=== PATIENT | male | born 1955 | race African-American/Black ===

== ENCOUNTER 2025-09-09 14:22 | Outpatient (CLI) | payer MEDICARE, SELFPAY ==
--- NOTE | ~2025-09-09 | US_ITS ---
EXAMINATION: US venous doppler LE RT, 09/09/2025 14:24 PASTEURIZER HELPER HISTORY: R60.0 - Localized edema Comparison: None Technique: Simmons-scale and color Doppler images were attempted of the lower saphenofemoral junction, common femoral vein,superficial femoral vein, proximal deep femoral vein, proximal deep femoral vein, popliteal vein and posterior tibial veins. Findings: Deep Venous System:Normal flow, augmentation and compressibility. No echogenic thrombus identified. The contralateral saphenofemoral junction appears unremarkable. Superficial Venous SystemNo superficial thrombophlebitis. Soft tissues: Soft tissues there is a enlarged right inguinal lymph node 4.2 x 2.3 cm probably reactive, follow-up suggested to assess resolution Impression: Negative for DVT. Reviewed, dictated and finalized at location P. EURIZER HELPER Impression: Negative for DVT.
--- OUTSIDE RECORDS SUMMARY | 2025-09-09 15:10 | XMS_ITS | Clinical Summary ---
Author Organization [facility] Address [address] [facility], [address] [address] Phone Care Team Providers Care Dental Front Office Assistant Name Role Phone Aram Still MD Primary Care Provider [phone] Slava Montiel MD Unavailable [phone] Kev Arora MD Unavailable [phone] Larry Joseph MD Unavailable [phone] Allergies Active Allergy Reactions Criticality Noted Date Comments Penicillins Other (see Comments) Cold sweat [place] Extract Rash 10/08/2019 Medications Multiple Vitamins-Minerals (SALMA MULTIVITAMIN FOR MEN PO) Take by mouth daily. Active Naproxen Sodium (ALEVE PO) Take by mouth as needed. Active meloxicam (MOBIC) 7.5 MG Tablet Take 1 Tablet by mouth daily. 90 Tablet 5 Active metroNIDAZOLE (FLAGYL) 500 MG TabletIndications :Trichomoniasis Take 4 Tablets by mouth once for 1 dose. 4 Tablet 5 08/29/20 25 Active Problems Problem Noted Date Diagnosed Date Carpal tunnel syndrome, left 08/14/2025 Arthritis 09/22/2021 Diastolic dysfunction 02/15/2020 Aortic regurgitation 02/15/2020 Resolved Problems Problem Noted Date Diagnosed Date Resolved Date High blood pressure 02/07/2020 09/12/20 Arthritis of left knee 09/11/201909/12 Rotator cuff tear, right 11/14/2015 Encounters Date Type Department Care Team Description 08/29/2025 [facility] [address] [place] [address] Aram Still MD Follow-up 08/14/2025 11:15 AM DIRECTOR TREASURER - 08/14/2025 12:15 PM DIRECTOR TREASURER [facility] 1 [place] [address] Matteo Mooney MD LEFT CARPAL TUNNEL RELEASE 08/14/2025 11:05 AM DIRECTOR TREASURER Anesthesia [facility] [address] [place] [address] Vishnu Branch, TERRAZZO MECHANIC HELPER, SONAR SUBSYSTEM EQUIPMENT OPERATOR 08/14/2025 9:28 AM DIRECTOR TREASURER - 08/14/2025 1:44 PM DIRECTOR TREASURER Hospital [facility] Preop[facility]Pac[facility] 1 [place] [address] Matteo Mooney MD Carpal tunnel syndrome, left Discharge Disposition: Discharged to home or Selfcare 08/14/2025 Travel 08/06/2025 11:45 AM CDT - 08/06/2025 11:59 PM CDT Hospital [facility] 1 [place] [address] Matteo Mooney MD Discharge Disposition: Discharged to home or Selfcare 08/05/2025 Travel 08/05/2025 Transcribe Orders [facility] Preop/Pacu II 1 [place] [address] Matteo Mooney MD Pre-op testing (Primary Dx) 07/17/2025 11:00 AM CDT [facility] [address] [place] [address] Matteo Mooney MD Osteoarthritis of right elbow, unspecified osteoarthritis type; Osteoarthritis of right wrist, unspecified osteoarthritis type; Pain in both hands; Pain of both elbows Discharge Disposition: Discharged to home or Selfcare 07/17/2025 Travel 07/01/2025 Transcribe Orders [facility] Scheduling 1 [place] [address] Matteo Mooney MD Osteoarthritis of right elbow, unspecified osteoarthritis type (Primary Dx); Osteoarthritis of right wrist, unspecified osteoarthritis type; Pain in both hands; Pain of both elbows from Last 3 Months Immunizations Immunization Administration Dates Next Due Covid-19, Mrna, Lnp-s, Pf, 3 0 Mcg/0.3 Ml Dose ([employer]) 05/09/2021,04/18/2021 Hepatitis B Vaccine, Pediatric/adolescent 1997,04/29/1998,03/25/1998 PUR TDAP 7+ YRS IM 09/06/2016 Pneumococcal Vaccine - 13 Valent 09/11/2019 Pneumococcal Vaccine Adult - 23 Valent 0 TD VACCINE 10/10/2004 Zoster Vaccine, live 11/08/2014 Family History Medical History Relation Name Comments Diabetes Brother Hypertension Brother Stroke Brother Cancer Father lung Thyroid Disease Mother Relation Name Status Comments Brother Father Mother Alive Social History Tobacco Use Types Packs/Day Years Used Date Smoking Tobacco: Never Smokeless Tobacco: Never Tobacco Cessation:Counseling Given: No Alcohol Use Standard Drinks/Week Comments Yes 0 (1 standard drink = 0.6 oz pur e alcohol) occasional beer PHQ-2 Answer Date Recorded Total Score - Questions 1-9 0 04/2025 Sex and Gender Information Value Date Recorded Sex Assigned at Not on file Legal Sex Male 8:52 PM CDT Gender Identity Not on file Sexual Orientation Not on file Last Filed Vital Signs Vital Sign Reading Time Taken Comments Blood Pressure 128/76 08/14/2025 12:45 PM DIRECTOR TREASURER Pulse 60 08/14/2025 12:45 PM DIRECTOR TREASURER Temperature 36.4 C (97.5 F) 08/14/2025 12:45 PM DIRECTOR TREASURER Respiratory Rate 16 08/14/2025 12:45 PM DIRECTOR TREASURER Oxygen Saturation 100% 08/14/2025 12:45 PM DIRECTOR TREASURER Inhaled Oxygen Concentration - - Weight 84.1 kg (185 lb 4.8 oz) 08/14/2025 9:33 A M DIRECTOR TREASURER Height 180.3 cm (5' 11) 08/14/2025 9:33 AM DIRECTOR TREASURER Body Mass Index 25.84 08/14/2025 9:33 AM DIRECTOR TREASURER Plan of Treatment Upcoming Encounters Date Type Department Care Team (Late st Contact Info) Description 10/17/2025 8:30 AM DIRECTOR TREASURER [facility] - [place] [address] [place] [id number] Aram Still MD [address] [id number] Health Maintenance Due Date Last Done Comments Cologuard 1999 Immunochemical Fecal Occult Blood 1999 Zoster Immunization (2 of 3) 01/03/2015 11/08/2014 Medicare Initial AWV [id number] 05/10/2020 Influenza Immunization (#1) 2025 SARS-COV-2 Immunization (3 - season) 2025 05/09/2021, 04/18/2021 Td Immunization Every 10 Yea rs (Adults With 1 Tdap) 09/06/2026 09/06/2016, 10/10/2004 Respiratory Syncytial Virus (RSV) Immunization (Adult) (1 - 1-dose 75+ series) 2029 Colonoscopy 01/14/2032 01/13/2022, 04/20/2013, 03/11/2008 Colorectal Cancer Screening 01/14/2032 Hepatitis B Immunization Aged Out 998, 04/29/1998, 03/25/1998 No longer eligible based on patient's age to complete this topic PSA Discussion Discontinued 02/07/2020 Pneumococcal Immunization (5 0+ years) Completed 09/12/2020, 09/11/2019 Pneumococcal Immunization Combined Discontinued 09/12/2020, 09/11/2019 Hepatitis C Virus (HCV) Screening Completed 09/29/2023 Human Papillomavirus (HPV) Immunization Aged Out No longer eligible based on patient's age to complete this topic Meningococcal Immunization (ACWY) Aged Out No longer eligible based on patient's age to complete this topic Rotavirus Immunization Aged Out No lo nger eligible based on patient's age to complete this topic Procedures Procedure Name Priority Date/Time Associated Diagnosis Comments REVISE MEDIAN N/CARPAL TUNNEL SURG 08/14/2025 10:45 AM DIRECTOR TREASURER LEFT CARPAL TUNNEL SYNDROME Special Needs 5'11 198LBS, HOLD MOBIC AND ALEVE X 7 DAYS PRIOR WRIST ARTHROSCOP,RELEASE XVERS LIG 08/14/2025 10:45 AM DIRECTOR TREASURER LEFT CARPAL TUNNEL SYNDROME Special Needs 5'11 198LBS, HOLD MOBIC AND ALEVE X 7 DAYS PRIOR EKG 12 LEAD Routine 08/06/2025 11:53 AM CDT Pre-op testing EMG 2 EXTREMITY W/WO RELATED PARASPINAL Routine 07/17/2025 12:00 AM CDT Osteoarthritis of right elbow, unspecified osteoarthritis type Osteoarthritis of right wrist, unspecified osteoarthritis type Pain in both hands Pain of both elbows HEPATITIS C ANTIBODY Routine 09/29/2023 8:17 AM DIRECTOR TREASURER Encounter for hepatitis C screening test for low risk patient PSA SCREEN Routine 02/07/2020 HM COLONOSCOPY Routine 03/11/2008 from Last 3 Months or Most Recently Relevant to Health Maintenance Results * EKG 12 LEAD (08/06/2025 11:53 AM CDT) Ventricular Rate 60 BPM EXTERNAL EKG Atrial Rate 60 BPM EXTERNAL EKG P-R Interval 176 ms EXTERNAL EKG QRS Duration 94 ms EXTERNAL EKG Q-T Duration 434 ms EXTERNAL EKG QTC CALCULATION 434 ms EXTERNAL EKG P Mazama 27 degrees EXTERNAL EKG R Mazama -3 degrees EXTERNAL EKG T Mazama 11 degrees EXTERNAL EKG 08/06/2025 11:5 3 AM CDT Impressions EXTERNAL EKG - 08/07/2025 10:45 PM CDT Normal sinus rhythm with sinus arrhythmia Normal ECG ~ Confirmed by Luz Echavarria ([id number]) on 08/07/2025 10:45:38 PM Narrative Procedure Note Luz Echavarria MD - 08/07/2025 IMPRESSION: Normal sinus rhythm with sinus arrhythmia Normal ECG ~ Confirmed by Luz Echavarria ([id number]) on 08/07/2025 10:45:38 PM us Matteo Mooney MD IMG ECG ORDERABLES Final Result EXTERNAL EKG * EMG 2 EXTREMITY W/WO RELATED PARASPINAL (07/17/2025 12:00 AM CDT) 07/17/2025 Narrative SCAN - 07/17/2025 12:00 AM CDT Satinder Downs MD 07/17/2025 1:27 PM Electromyogram Procedure Note Date of Procedure: 07/17/2025 Pre-operative Diagnosis: bilateral upper extremity numbness, tingling and pain. Post-operative Diagnosis: Indications: Diagnostic Procedure Details Motor Nerve Conduction Studies: The left median motor nerve shows prolonged distal motor latency, decreased motor amplitude and decreased conduction velocity. The right median motor nerve shows normal distal motor latency, normal motor amplitude and normal conduction velocity. The bilateral ulnar motor nerve shows normal distal motor latency, normal motor amplitude and normal conduction velocity. F waves: F wave latency for the left median nerve was prolonged. F wave latency for the right median nerve was normal. F wave latencies for the bilateral ulnar nerve were normal. Sensory Nerve Conduction Studies: The bilateral radial sensory nerve shows normal sensory nerve peak latency and normal sensory amplitude. Median ulnar comparisons were not reactive on the left and normal on the right. Median radial comparisons were not reactive on the left and normal on the right. The left median sensory nerve peak latency was not reactive. The right median sensory nerve shows normal sensory nerve peak latency and normal sensory amplitude. The bilateral ulnar sensory nerve shows normal sensory nerve peak latency and normal sensory amplitude. EMG: Needle EMG of the left APB shows fibrillation potentials consistent with ongoing denervation activity with reduced recruitment. Needle EMG of the left deltoid, biceps, triceps and FDI were normal. 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 There was no evidence of radiculopathy of left upper extremity. There was no evidence of compression neuropathy of right upper extremity. Clinical correlation is recommended. Matteo Mooney MD NEUROLOGY ORDERABLES Final Resul t SCAN * HEPATITIS C ANTIBODY (09/29/2023 8:17 AM DIRECTOR TREASURER) hepatitis C antibody 0.32 <1 S/CO [facility] ARCH [id number] B 09/29/2023 9:58 PM DIRECTOR TREASURER [facility] Comment: Signal/Cutoff ratio < 0.79 is Nondetected Signal/Cutoff ratio 0.80-0.99 is Grayzone Signal/Cutoff ratio > 0.99 is Detected Supplemental assays are recommended if signal/cutoff ratio is >/=1.00. Signal/cutoff ratio result >/= 5.00 is 97% predictive of positivity for recombinant immunoblot assay (RIBA) and will be reported to the [place] Department of Public Health as required. Blood Venipuncture / Unknown 09/29/2023 8:17 AM DIRECTOR TREASURER 09/29/2023 8:17 AM DIRECTOR TREASURER Aram Still MD CHEMISTRY ORDERABLES Aliza l Result Performing Organization Address City[facility] Co de Phone Number [facility] [address] [place] [address], [place] * PSA SCREEN (02/07/2020) PSA (PROSTATE SPECIFIC ANTIGEN) 1.4 ng/mL Blood specimen (specimen) 02/07/2020 Kev Arora MD CHEMISTRY ORDERABLES Final Resu lt * HM COLONOSCOPY (03/11/2008) Aram Still MD PROCEDURE/MINOR SURGICAL ORDERABLES Final Result from Last 3 Months or Most Recently Relevant to Health Maintenance Insurance MEDICARE [facility] Care Teams Dental Front Office Assistant Relationship Specialty Start Date End Date Aram Still MD [address] [place] [address] PCP - General Internal Medicine 07/05/15 Slava Montiel MD [address] [facility] [address] [place] [address] Consulting Physician Anesthesiology 09/11/19 [place] [address] [address] Consulting Physician Cardiology 09/23/22 Larry Joseph MD [address] [facility] [address] [place] [address] Consulting Physician Orthopaedic Surgery 09/23/22
--- OUTSIDE RECORDS SUMMARY | 2025-09-09 15:10 | XMS_ITS | Encounter Summary ---
Author Organization [facility] Address [address] [place] [address] Phone Care Team Providers Care Administrative Intern Name Role Phone Aram Still MD Primary Care Provider [phone] Slava Montiel MD Unavailable [phone] Kev Arora MD Unavailable [phone] Larry Joseph MD Unavailable [phone] Reason for Visit * Reason Onset Date Comments Follow-up 08/29/2025 Encounter Details Date Type Department Care Team (Late st Contact Info) Description 08/29/2025 Telephone [facility] [address] [place] [address] Aram Still MD [address] [place] [address] Follow-up Social History Tobacco Use Types Packs/Day Years Used Date Smoking Tobacco: Never Smokeless Tobacco: Never Alcohol Use Standard Drinks/Week Comments Yes 0 (1 standard drink = 0.6 oz pur e alcohol) occasional beer PHQ-2 Answer Date Recorded Total Score - Questions 1-9 0 /0 04/2025 Sex and Gender Information Value Date Recorded Sex Assigned at Not on file Legal Sex Male 8:52 PM CDT Gender Identity Not on file Sexual Orientation Not on file documented as of this encounter Miscellaneous Notes * Telephone Encounter - Bebe Arvizu RN - 08/30/2025 9:33 AM SPRING CRATER Delfin Kyung NietoCollin notified, verbalized understanding. NG CRATER * Telephone Encounter - Aram Still MD - 08/29/2025 4:46 PM SPRING CRATER Prescription for metronidazole sent to the patient's pharmacy. He and his spouse need to take theirtreatment at the same time. NG CRATER * Telephone Encounter - Darline Ruelas RN - 08/29/2025 4:36 PM CST Situation: Patient requesting antibiotics. Background: Patient contacting PCP office. Assessment: Patients spouse diagnosed with Trichomonas and her doctor told her spouse to reach out to his PCP to get medication as well. Patient declines all symptoms Recommendation: Please review and advise. Pharmacy Verified Encounter routed to provider to notify. NG CRATER documented in this encounter Plan of Treatment Upcoming Encounters Date Type Department Care Team (Late st Contact Info) Description 10/17/2025 8:30 AM SPRING CRATER Office Visit [facility] - Primary Care - [place] [address] [place] [address] Aram Still MD [address] [place] [address] documented as of this encounter Visit Diagnoses Diagnosis Trichomoniasis- Primary Trichomoniasis, unspecified documented in this encounter Additional Health Concerns Assessment Noted Time PHQ-9 Depression Total Score: 0 10/16/19 25 2:15 PM SPRING CRATER documented as of this encounter Care Teams Administrative Intern Relationship Specialty Start Date End Date Aram Still MD [address] [place] [address] PCP - General Internal Medicine 07/05/15 Slava Montiel MD [address] [facility] [address] [place] [address] Consulting Physician Anesthesiology 09/11/19 [place] [address] [address] Consulting Physician Cardiology 09/23/22 Larry Joseph MD [address] [facility] [address] [place] [address] Consulting Physician Orthopaedic Surgery 09/23/22 documented as of this encounter
--- OUTSIDE RECORDS SUMMARY | 2025-09-09 15:10 | XMS_ITS | Clinical Summary ---
Author Organization [facility] Address [address] [place] [address] Care Team Providers Care Bariatric Surgeon Name Role Phone Aram Still MD Primary Care Provider + Aram Still MD Unavailable [phone] Allergies Active Allergy Reactions Criticality Noted Date Comments Penicillins Other (See comments) Low Cold sweat [place] Extract Rash Medium 10/08/2019 Medications meloxicam (MOBIC) 15 mg tablet Take 1 tablet (15 mg total) by mouth daily 5 Active fluticasone propionate (FLONASE) 50 mcg/actuation nasal spray Administer 1 spray into each nostril daily 1 each 11 5 Active sodium chloride-aloe vera spray,non-aeros ol Administer 1 spray into each nostril 2 (two) times a day 22 mL 3 5 Active Active Problems Patient Care Coordination No te Formatting of this note migh t be different from the original. Loss of taste Problem Noted Date Diagnosed Date Arthritis 09/22/2021 Aortic regurgitation 02/15/2020 Diastolic dysfunction 02/15/2020 Arthritis of left wrist 04/20/2018 Surgical History Surgery Date Site/Laterality Comments ROTATOR CUFF REPAIR 2016 [place] Family History Medical History Relation Name Comments Hypertension Father Heart disease Mother Relation Name Status Comments Father Mother Social History Tobacco Use Types Packs/Day Years Used Date Smoking Tobacco: Never Smokeless Tobacco: Never Sex and Gender Information Value Date Recorded Sex Assigned at Not on file Legal Sex Male 11:58 AM DETASSELER Gender Identity Not on file Sexual Orientation Not on file Last Filed Vital Signs Vital Sign Reading Time Taken Comments Blood Pressure 162/84 02/24/2018 11:20 AM CDT Pulse 56 02/24/2018 11:20 AM CDT Temperature - - Respiratory Rate - - Oxygen Saturation - - Inhaled Oxygen Concentration - - Weight 89.4 kg (197 lb) 03/26/2025 2:25 PM CDT Height 177.8 cm (5' 10) 03/26/2025 2:25 PM CDT Body Mass Index 28.27 03/26/2025 2:25 PM CDT Plan of Treatment Health Maintenance Due Date Last Done Comments Colon Cancer Screening-Colonoscopy 1954 Depression Screening 1954 Fall Risk Assessment 1954 Hepatitis C Screening 1954 Prostate Cancer Screening-PSA 1954 Zoster Vaccine (2 of 3) 01/03/2015 11/08/2014 Well Visit 65+ 2019 Covid-19 Vaccine (3 - season) 2025, 04/18/2021 Influenza Vaccine (#1) 2025 DTaP/Tdap/Td Vaccine (2 - Td or Tdap) 09/06/2026, 10/10/2004 Hepatitis B Screening Completed 09/29/1998 , 04/29/1998, 03/25/1998 Pneumococcal vaccine 65+ Completed 09/12/2020, 1212/2018 Insurance [facility] CHOICE PLUS [facility] H[facility]/PPO Address: [address] [address] [place] [address] UMR [facility] H[facility]/PPO Address: [address] [address] [place] [address] [address] [facility] [place] [phone] [facility] CHOICE PLUS [facility] HMO/PPO Address: [address] [address] [place] [address] [facility] MEDICARE ADVANTAGE [facility] MEDIC[facility] Address: [address] [address] [place] [address] [facility] MEDICARE ADVANTAGE [facility] Address: [address] [address] [place] [address] [facility] MEDICARE ADVANTAGE [facility] Address: [address] [address] Care Teams Bariatric Surgeon Relationship Specialty Start Date End Date Aram Still MD [address] [place] [address] PCP - General Internal Medicine 01/10/25 Aram Still MD [address] [place] [address] Internal Medicine 01/10/25
[2025-09-09 15:27] LABS: Hematocrit 39.2 % (42.0-52.0); Hemoglobin 12.5 g/dL (14.0-18.0); Immature Granulocyte Percent A 0.3 % (0-0.5); Lymphocytes Absolute Auto 1.98 K/mm3 (0.9-3.2); Mean Corpuscular HGB Conc 31.9 g/dl (32-36); Mean Corpuscular Hemoglobin 26.4 pg (26-34); Mean Corpuscular Volume 82.7 fl (80-100); Nucleated Red Blood Cells Absolute Auto 0.000 K/mm3 (0.0-0.012); Nucleated Red Blood Cells Perc 0.0 % (0.0-0.2); Platelet Count Result 292 k/mm3 (150-375); Red Blood Count 4.74 M/mm3 (4.6-6.20); White Blood Count 5.9 K/mm3 (4.5-10.0)
[2025-09-09 15:56] LABS: CRP 2.4 mg/dL (<1.0)
== END 2025-09-09 14:23 | disposition home or self-care (01) ==
PROVIDERS: PCP Internal Medicine; Visit Provider Orthopaedic Surgery
DX: R60.0 Localized edema (principal)
CPT/HCPCS: 36415; 85025; 85652; 86140; 93971

== ENCOUNTER 2025-09-16 16:06 | Outpatient (NON) | payer MEDICARE, SELFPAY ==
[2025-09-16 17:30] LABS: Color Synovial Fluid Yellow (Colorless); Nucleated Cell Synovial Fluid 20645 /uL (0-200); Source Synovial Fluid Lt Knee Syn Fluid
[2025-09-16 17:31] LABS: RBC Synovial Fluid 5000 /uL (0-0)
[2025-09-16 17:36] LABS: Lymphocytes Synovial Fluid 6 %; Monocytes Synovial Fluid 4 %; Neutrophils Synovial Fluid 90 % (0-25)
--- OUTSIDE RECORDS SUMMARY | 2025-09-16 19:21 | XMS_ITS | Clinical Summary ---
Author Organization [facility] Address [address] [place] [address] Care Team Providers Care Motion Study Analyst Name Role Phone Aram Still MD Primary Care Provider + Aram Still MD Unavailable [phone] Allergies Active Allergy Reactions Criticality Noted Date Comments Penicillins Other (See comments) Low Cold sweat [place] Extract Rash Medium 10/08/2019 Medications meloxicam (MOBIC) [...] Date Site/Laterality Comments ROTATOR CUFF REPAIR 2016 [place] Family History Medical History Relation Name Comments Hypertension Father Heart disease Mother Relation Name Status Comments Father Mother Social History Tobacco Use Types Packs/Day Years Used Date Smoking Tobacco: Never Smokeless Tobacco: Never Sex and Gender Information Value Date Recorded Sex Assigned at Not on file Legal Sex Male 11:58 AM TAKE UP OPERATOR Gender Identity Not on file Sexual Orientation [...] Pneumococcal vaccine 65+ Completed 09/12/2020, 1212/2018 Insurance [facility] CHOICE PLUS U[employer] [facility] [address] [facility] [place] [phone] [facility] CHOICE PLUS [facility] MEDICARE ADVANTAGE [facility] MEDICARE ADVANTAGE [facility] MEDICARE ADVANTAGE Care Teams Motion Study Analyst Relationship Specialty Start Date End Date Aram Still MD [address] [place] [address] PCP - General Internal Medicine 01/10/25 Aram Still MD [address] [place] [address] Internal Medicine 01/10/25
== END 2025-09-16 16:07 | disposition home or self-care (01) ==
PROVIDERS: PCP Internal Medicine; Visit Provider Orthopaedic Surgery
DX: M25.562 Pain in left knee (principal); Z96.652 Presence of left artificial knee joint
CPT/HCPCS: 89051; 89060